=== PATIENT | female | born 1965 | race Caucasian/White ===

== ENCOUNTER 2017-02-13 15:16 | Emergency (ER) | payer OTHER ==
[~2017-02-13] VITALS: Ht 157.5 cm; Wt 56.1 kg
[2017-02-13 15:19] VITALS: Ht 157.5 cm; Wt 56.1 kg
[2017-02-13] MEDS ORDERED: KETOROLAC 30 MG INJ IM STA (17:03)
[2017-02-13] MEDS ORDERED: AMOX1TAB10 PO (17:03)
[2017-02-13] MEDS ORDERED: ACET500C5 PO (17:03)
--- NOTE | 2017-02-13 18:04 | RADRPT ---
PROCEDURE: XR Chest. CLINICAL INDICATION: Shortness of breath TECHNIQUE: Chest AP portable. COMPARISON: No comparison available. FINDINGS: The mediastinal structures are unremarkable. The heart is normal in size and configuration. The pu lmonary vascularity is normal. The lung cyr are unremarkable. No consolidation is identified. The pleural spaces are unremarkable. The axial skeleton is unremarkable. IMPRESSION: No active intrathoracic disease. RPTAT: HGDB .Jagdish Huang MD, MD Date Time Electronically viewed and signed by .Jagdish Huang MD, on 02/13/2017 18:04 .B/
--- NOTE | 2017-02-14 01:47 | ERD ---
ER Documentation Chief Complaint Date/Time DATE: 02/14/17 TIME: 01:43 Chief Complaint SINUS PAYTON X 8 DAYS, STUFFY NOSE,ST HPI 51-year-old female patient with a past medical history of hypertension presents to the ED complaining of neck pain, congestion, sore throat, chest congestion, sinus pain that started 8 days ago. Reports that she feels like the postnasal drip is going down her chest and is having difficulty breathing. Denies any fever, chills, wheezing, body aches, nausea, vomiting, diarrhea, abdominal pain , constipation, leg swelling, hemoptysis, hematemesis. Reports that she followed up with her primary care physician earlier today and was not prescribed antibiotics. Denies any recent traveling. ROS All systems reviewed and are negative except as per history of present illness. Medications Home Meds Active Scripts Acetaminophen* (Tylophen*) 500 Mg Capsule, 1 CAP PO Q6H Y for PAIN AND OR ELEVATED TEMP, #20 CAP Prov:KAROL REIS PA-C 02/13/17 Amoxicillin/Potassium Clav (Amox-Clav 875-125 mg Tablet) 875-125 mg Tab, 1 TAB PO BID for 7 Days, #14 TAB Prov:KAROL REIS PA-C 02/13/17 PMhx/Soc Medical and Surgical Hx: pt denies Medical Hx, pt denies Surgical Hx Hx Alcohol Use: No Hx Substance Use: No Hx Tobacco Use: No Physical Exam Vitals Vital Signs Date Time Temp Pulse Resp B/P Pulse Ox O2 Delivery O2 Flow Rate FiO2 02/13/17 15:19 98.6 81 18 159/69 99 Physical Exam Const: [id number]-[id number], well-nourished. In no acute distress. Head: Atraumatic, normocephalic. Tenderness to palpation of bilateral maxillary and frontal sinuses. Eyes: Normal Conjunctiva without injection. No purulent discharge. PERRL. EOMI ENT: Normal external ear. Ear canal without erythema. Tympanic membrane pearly berman without effusion or bulging. Nasal canal clear with normal turbinates. Moist oropharynx without tonsillar exudates. Non-erythematous pharynx. Uvula midline. No drooling. No trismus. Neck: Full range of motion. No meningismus. No cervical lymphadenopathy. Resp: Clear to auscultation bilaterally. No wheezing, rhonchi, rales, or crackles. No accessory muscle use. No retractions. Cardio: Regular rate and rhythm. No murmurs, rubs or gallops. Abd: Soft, non tender, non distended. Normal bowel sounds. No palpable masses. No rebound tenderness. No guarding. Skin: No petechiae or rashes Back: No midline tenderness. No CVA tenderness. Ext: No cyanosis, or edema. Neur: Awake and alert. Psych: Normal Mood and Affect Results 24 hrs Current Medications Medications (Trade) Dose Ordered Sig/Ken Route PRN Reason Start Time Stop Time Status Last Admin Dose Admin Ketorolac Tromethamine (Toradol) 30 mg ONCE STAT IM 02/13/17 17:03 02/13/17 17:04 DC 02/13/17 17:10 Procedures/MDM 51 year old female patient with a past medical history of hypertension presents to the ED complaining of sinus headache, stuffy nose, sore throat, chest congestion and shortness of breath that started 8 days ago. Patient is afebrile and nontoxic-appearing. Patient was given ketorolac 30 mg IM with improvement of her pain. A chest x-ray was ordered to further evaluate patient. PROCEDURE: XR Chest. CLINICAL INDICATION: Shortness of breath TECHNIQUE: Chest AP portable. COMPARISON: No comparison available. FINDINGS: The mediastinal structures are unremarkable. The heart is normal in size and configuration. The pulmonary vascularity is normal. The lung cyr are unremarkable. No consolidation is identified. The pleural spaces are unremarkable. The axial skeleton is unremarkable. IMPRESSION: No active intrathoracic disease. This patient presents to the ED with symptoms consistent with sinusitis. Patient is afebrile and has normal vital signs. There is a low suspicion for pneumonia, pneumothorax, mononucleosis, pulmonary embolism, epiglottitis, otitis media, otitis externa, viral/strep pharyngitis, sinusitis, peritonsillar abscess, mastoiditis, retropharyngeal abscess, meningitis, sepsis, acute abdomen , intracranial bleed, acute neurological deficits, mass effect, subarachnoid hemorrhage, carotid dissection, carotid aneurysm, subdural hematoma, epidural hematoma, seizures, TIA, stroke or other emergent conditions. Discharge medications: Tylenol, Augmentin Patient was instructed to return to the ED for any new or worsening symptoms. They should otherwise follow up with the primary care provider within 1-2 days. The patient's questions were answered at the time of discharge. Patient understood and agreed with discharge management. Departure Diagnosis: Primary Impression: Sinusitis Sinusitis location: maxillary Chronicity: unspecified Qualified Code: J32.0 - Maxillary sinusitis, unspecified chronicity Condition: Stable Patient Instructions: Sinusitis, Abx Tx Referrals: COMMUNITY CLINICS YOU HAVE RECEIVED A MEDICAL SCREENING EXAM AND THE RESULTS INDICATE THAT YOU DO NOT HAVE A CONDITION THAT REQUIRES URGENT TREATMENT IN THE EMERGENCY DEPARTMENT. FURTHER EVALUATION AND TREATMENT OF YOUR CONDITION CAN WAIT UNTIL YOU ARE SEEN IN YOUR DOCTORS OFFICE WITHIN THE NEXT 1-2 DAYS. IT IS YOUR RESPONSIBILITY TO MAKE AN APPOINTMENT FOR FOLOW-UP CARE. IF YOU HAVE A PRIMARY DOCTOR --you should call your primary doctor and schedule an appointment IF YOU DO NOT HAVE A PRIMARY DOCTOR YOU CAN CALL OUR PHYSICIAN REFERRAL HOTLINE AT IF YOU CAN NOT AFFORD TO SEE A PHYSICIAN YOU CAN CHOSE FROM THE FOLLOWING [facility] [address] [facility] [address] [facility] [facility] [address] [facility] [address] [facility] [address] [facility]. [address] [facility]. [facility] YOU HAVE RECEIVED A MEDICAL SCREENING EXAM AND THE RESULTS INDICATE THAT YOU DO NOT HAVE A CONDITION THAT REQUIRES URGENT TREATMENT IN THE EMERGENCY DEPARTMENT. FURTHER EVALUATION AND TREATMENT OF YOUR CONDITION CAN WAIT UNTIL YOU ARE SEEN IN YOUR DOCTORS OFFICE WITHIN THE NEXT 1-2 DAYS. IT IS YOUR RESPONSIBILITY TO MAKE AN APPOINTMENT FOR FOLOW-UP CARE. IF YOU HAVE A PRIMARY DOCTOR --you should call your primary doctor and schedule and appointment IF YOU DO NOT HAVE A PRIMARY DOCTOR YOU CAN CALL OUR PHYSICIAN REFERRAL HOTLINE AT . IF YOU CAN NOT AFFORD TO SEE A PHYSICIAN YOU CAN CHOSE FROM THE FOLLOWING [facility] INSTITUTIONS: [facility] [address] [place] [address] [facility] [address] [place] [address] [facility] [address] [place] [address] [facility]CIALT[facility] Additional Instructions: Llame al doctor MAANA y daquan missy NABILA PARA DENTRO DE 2-3 KRUGER.Dgale a la secretaria que nosotros le instruimos hacer esta nabila.Avise o llame si hutchinson condicin se empeora antes de la nabila. Regresa aqui si peor o no mejor. KAROL REIS PA-C February 14, 2017 01:47
== END 2017-02-13 18:28 | disposition home or self-care (01) ==
LOC: FTE 15:16
DX: J32.0 Chronic maxillary sinusitis (principal); R06.02 Shortness of breath
CPT/HCPCS: 71010; 96372; J1885; Z7502

== ENCOUNTER 2017-10-08 19:47 | Emergency (ER) | END 2017-10-09 03:56 | disposition home or self-care (01) ==

== ENCOUNTER 2018-02-14 20:11 | Emergency (ER) | END 2018-02-14 23:33 | disposition home or self-care (01) ==

== ENCOUNTER 2018-08-05 10:16 | Emergency (ER) | END 2018-08-05 14:16 | disposition home or self-care (01) ==

== ENCOUNTER 2019-02-04 15:37 | Emergency (ER) | payer OTHER ==
[~2019-02-04] VITALS: Ht 154.9 cm; Wt 66.6 kg
[~2019-02-04 15:37] MED LIST: FOLI-49 PO; HYDR25TA6 PO; ONDA4TAB8 PO; PANT40TA4 PO; TRAM50TA PO
[2019-02-04 15:50] VITALS: Ht 154.9 cm; Wt 66.6 kg
[2019-02-04] MEDS ORDERED: KETOROLAC 30 MG INJ IM STA (17:35)
[2019-02-04] MEDS ORDERED: TRAM50TA2 PO (17:40)
[2019-02-04] MEDS ORDERED: ACET500C5 PO (17:40)
--- NOTE | 2019-02-04 17:48 | ERD ---
ER Documentation Chief Complaint Chief Complaint PELVIC PAIN W/ DYSURIA X5 DAYS HPI 53-year-old female with past medical history of hypertension, is post appendectomy and multiple C-sections who presents with 5-day complaint of right- sided pelvic pain and dysuria. Describes a sharp pain now localized to the right lower pelvic region. Pain made worse with ambulation. Describes urinary frequency with dysuria but reports history of bladder control issues. She otherwise denies fevers, chills, vaginal bleeding, vaginal discharge, duration of pelvic pain, abdominal pain, nausea vomiting, diarrhea. Has a history of herpes status post treatment but denies any herpes related flares type symptoms. Denies any family history of [facility] malignancy, history of fibroids, history of ovarian cyst. Time examination patient is nontoxic and hemodynamically stable, no fevers. ROS All systems reviewed and are negative except as per history of present illness. Medications Home Meds Active Scripts Tramadol HCl (Tramadol HCl) 50 Mg Tablet, 50 MG PO Q6 PRN for PAIN, #7 TAB Prov:KACIE ALMAZAN PA-C 02/04/19 Acetaminophen* (Tylophen*) 500 Mg Capsule, 1 CAP PO Q6H PRN for PAIN AND OR ELEVATED TEMP, #20 CAP Prov:KACIE ALMAZAN PA-C 02/04/19 Ondansetron Hcl* (Zofran*) 4 Mg Tablet, 4 MG PO Q6H for NAUSEA AND/OR VOMITING, #30 TAB Prov:RANDALL QUINTERO MD 08/05/18 Reported Medications Hydrochlorothiazide* (Hydrochlorothiazide*) 25 Mg Tab, 25 MG PO DAILY, #30 TAB 08/05/18 Folic Acid* (Folic Acid*) 1 Mg Tablet, 1 MG PO DAILY, TAB 08/05/18 Tramadol Hcl* (Ultram*) 50 Mg Tablet, 50 MG PO DAILY PRN for PAIN, TAB 08/05/18 Pantoprazole* (Pantoprazole*) 40 Mg Tablet.dr, 40 MG PO AC BREAKFAST, TAB 08/05/18 Allergies Allergies: Coded Allergies: No Known Allergy (Unverified , 10/08/17) PMhx/Soc History of Surgery: Yes (cholecystectomy, , right shoulder) Anesthesia Reaction: No Hx Neurological Disorder: No Hx Respiratory Disorders: No Hx Cardiac Disorders: Yes (HTN) Hx Psychiatric Problems: No Hx Miscellaneous Medical Probl: Yes (PRE-DM) Hx Alcohol Use: No Hx Substance Use: No Hx Tobacco Use: No Smoking Status: Never smoker FmHx Family History: No diabetes, No coronary disease, No other Physical Exam Vitals Vital Signs Date Temp Pulse Resp B/P (MAP) Pulse Ox O2 O2 Flow FiO2 Time Delivery Rate 02/04/19 96.7 78 19 164/83 96 Room Air 19:18 (110) 02/04/19 98.2 65 16 136/73 98 15:50 (94) Physical Exam I have reviewed the triage vital signs. Const: Well nourished, well developed, appears stated age Eyes: PERRL, no conjunctival injection HENT: NCAT, Neck supple without meningismus CV: RRR, Warm, well-perfused extremities RESP: CTAB, Unlabored respiratory effort GI: Tenderness on palpation to right iliac region, rest of the abdomen soft nontender, no rebound or guarding during examination, no scars noted MSK: No gross deformities appreciated Skin: Warm, dry. No rashes Neuro: grossly non focal Psych: Appropriate mood and affect. Results 24 hrs Laboratory Tests Test 02/04/19 17:40 Urine Color COLORLESS Urine Clarity CLEAR Urine pH 6.0 Urine Specific [place] 1.002 Urine Ketones NEGATIVE mg/dL Urine Nitrite NEGATIVE mg/dL Urine Bilirubin NEGATIVE mg/dL Urine Urobilinogen NEGATIVE mg/dL Urine Leukocyte Esterase TRACE Kinza/ul Urine Microscopic RBC 1 /HPF Urine Microscopic WBC 1 /HPF Urine Hemoglobin NEGATIVE mg/dL Urine Glucose NEGATIVE mg/dL Urine Total Protein NEGATIVE mg/dl Current Medications Medications Dose Sig/Ken Start Time Status Last (Trade) Ordered Route PRN Stop Time Admin Dose Reason Admin Ketorolac 30 mg ONCE STAT 02/04/19 DC 02/04/19 Tromethamine IM 17:35 17:45 (Toradol) 02/04/19 17:39 Procedures/MDM 53-year-old who presents with right-sided pelvic pain unclear etiology. No report of vaginal bleeding or discharge. No reported family history of [facility] malignancy. Patients symptoms not typical for other emergent causes of abdominal pain such as, but not limited to, appendicitis, abdominal aortic aneurysm, surgical biliary disease, pancreatitis, SBO, mesenteric ischemia, serious intra-abdominal bacterial illness. Presentation also not typical of gynecologic emergencies such as TOA, Ovarian Torsion, PID. Not Ectopic. Doubt atypical ACS. Pt tolerating PO and pain controlled. ED course: Pelvic exam without acute findings, UA unremarkable Patient will be discharged with strict return precautions. She follows prominently with her [facility] physician and patient advised the time of discharge to follow-up within 1 to 2 weeks with her [facility] physician. DISPOSITION PLAN: We discussed follow up with the patient's primary care doctor within 24 to 48 hours. Patient counseled regarding my diagnostic impression and care plan. Prior to discharge all questions answered. Pt agrees with treatment plan and understands strict return precautions. Precautionary instructions provided in cluding instructions to return to the ER if not improving or for any worsening or changing symptoms or concerns. Disclaimer: Inadvertent spelling and grammatical errors are likely due to EHR/dictation software use and do not reflect on the overall quality of patient care. Also, please note that the electronic time recorded on this note does not necessarily reflect the actual time of the patient encounter. Departure Diagnosis: Primary Impression: Acute pain in female pelvis Condition: Stable Patient Instructions: Pelvic Pain, Unknown Cause Additional Instructions: Call your primary care doctor TOMORROW for an appointment during the next 2-3 days.See the doctor sooner or return here if your condition worsens before your appointment time. KACIE ALMAZAN PA-C Feb 04, 2019 17:48
[2019-02-04 19:18] VITALS: BP 164/83; PULSE 78; RESP 19
== END 2019-02-04 19:31 | disposition home or self-care (01) ==
LOC: FTE 15:37
DX: R10.2 Pelvic and perineal pain (principal); I10 Essential (primary) hypertension
CPT/HCPCS: 76830; 76856; 81001; 96372; J1885; Z7502